=== PATIENT | female | born 1935 | race Caucasian/White ===

== ENCOUNTER → 2016-06-26 | Outpatient (CLI) | payer OTHER, MEDICARE ==
--- NOTE | 2016-06-26 16:40 | DX ---
Chest 2 views - June 26, 2016, at 1515 hours History: Bronchitis, acute sinusitis, previous left lobectomy for lung cancer. Comparison: April 2012. Findings: Complete opacification of the left hemithorax with shift of the heart and mediastinum towa rd the left, similar to the previous study. Right lung demonstrates no evidence of definite focal pne umonia. Peribronchial thickening is noted on the right. Atherosclerotic aorta. No definite destructiv e osseous lesions. Impression: 1. Prior left pneumonectomy. 2. Probable bronchitis right lung. 3. Consider CT chest imaging if clinically indicated.
== END ==
LOC: GIMAGING 15:13
PROVIDERS: ATTEND Internal Medicine
DX: R91.8 Other nonspecific abnormal finding of lung field (principal)
CPT/HCPCS: 71020-PO